=== PATIENT | female | born 1945 | race Caucasian/White ===

== ENCOUNTER 2020-01-14 09:54 | Outpatient (CLI) | payer MEDICARE, BC ==
[~2020-01-14 09:54] MED LIST: GABA300C10 PO; OXYC1TAB7 PO; POTA8TAB PO
== END 2020-01-14 23:59 | disposition home or self-care (01) ==
LOC: CFH 09:54
PROVIDERS: ATTEND Internal Medicine
DX: Z12.31 Encounter for screening mammogram for malignant neoplasm of breast (principal)
CPT/HCPCS: 77067